=== PATIENT | male | born 1930 | race Hispanic/Latino ===

== ENCOUNTER 2016-11-17 12:14 | Inpatient (IN) | payer MEDICARE, OTHER ==
[2016-11-17 13:35] LABS: BASO # 0.1 K/uL (0.0-0.2); BASO % 0.7 % (0.0-2.0); EOS % 0.2 % (0.0-4.0); HEMATOCRIT 35.2 % (35.0-51.0); LYMPH # 1.1 K/uL (1.0-4.3); LYMPH % 7.1 % (20.0-40.0); MEAN CELL VOLUME 93.9 fl (80.0-94.0); MEAN CORPUSCULAR HEMOGLOBIN 31.8 pg (27.0-31.0); MEAN CORPUSCULAR HGB CONC 33.9 g/dL (33.0-37.0); MEAN PLATELET VOLUME 6.5 fl (7.2-11.7); MONO # 1.6 K/uL (0.0-0.8); MONO % 10.2 % (0.0-10.0); NEUT # 13.1 K/uL (1.8-7.0); NEUT % 81.8 % (50.0-75.0); PLATELET COUNT 400 K/uL (130-400); RED CELL DISTRIBUTION WIDTH 12.5 % (11.5-14.5)
[2016-11-17 13:40] LABS: BLOOD UREA NITROGEN 19 mg/dl (9-20); CALCIUM 9.1 mg/dL (8.4-10.2); CARBON DIOXIDE 25 mmol/L (22-30); CHLORIDE 90 mmol/L (98-107); GFR AFRICAN-AMERICAN > 60; GLUCOSE,RANDOM 119 mg/dL (75-110); POTASSIUM 3.1 MMOL/L (3.6-5.0); SODIUM 122 mmol/l (132-148)
[2016-11-17 13:58] LABS: PARTIAL THROMBOPLASTIN TIME 29.2 SECONDS (23.3-32.5)
[2016-11-17] MEDS ORDERED: Sodium Chloride 0.9% 500 ML IV STA (14:13)
[2016-11-17] MEDS ORDERED: Potassium Chloride 20 mEq ER Tab PO ONE ×2 (14:15→15:50)
--- NOTE | 2016-11-17 14:16 | RAD ---
HISTORY: Cough COMPARISON: 05/22/2008 FINDINGS: LUNGS: The lungs are well inflated and clear. PLEURA: No significant pleural effusion identified, no pneumothorax apparent. CARDIOVASCULAR: The heart is normal in size. Status post CABG. OSSEOUS STRUCTURES: No significant abnormalities. VISUALIZED UPPER ABDOMEN: Normal. OTHER FINDINGS: None. IMPRESSION: No active pulmonary disease.
[2016-11-17 14:38] LABS: EOSINOPHIL 1 % (0-7); NEUTROPHIL 84 % (42-75); REACTIVE LYMPHOCYTES 2 % (0-0); TOTAL CELLS COUNTED 100
--- NOTE | 2016-11-17 14:43 | ED PDOC ---
Lower Extremity Pain/Injury Time Seen by Provider: 11/17/16 12:40 Chief Complaint (Nursing): Lower Extremity Problem/Injury Chief Complaint (Provider): Lower Extremity Problem/Injury History Per: Patient History/Exam Limitations: no limitations Onset/Duration Of Symptoms: Hrs Current Symptoms Are (Timing): Still Present Severity: Moderate Additional Complaint(s): Patient is a 86 year old male who presents to ED for right hip pain s/p fall last night. Patient states he slipped out of bed injuring his hip and unable to get up, finally able to call EMS this morning. Patient denies head, neck or back pain. Patient also reports mild cough and sore throat for 1 day. Notes fell 1 month ago, [facility] Past Medical History Reviewed: Historical Data, Nursing Documentation, Vital Signs Vital Signs: Last Vital Signs Temp 97.5 F L 11/17/16 12:18 Pulse 86 11/17/16 12:18 Resp BP 170/80 H 11/17/16 12:18 Pulse Ox 99 11/17/16 12:18 - Medical History PMH: Benign Prostatic Hyperplasia Denies: Chronic Kidney Disease - Surgical History Surgical History: CABG - Family History Family History: States: Unknown Family Hx - Living Arrangements Living Arrangements: Alone - Home Medications Home Medications: Ambulatory Orders Medication Instructions Recorded Acetaminophen [Tylenol Extra 500 mg PO Q4 #30 tablet 07/17/16 Strength] - Allergies Allergies/Adverse Reactions: Allergies Allergy/AdvReac Type Severity Reaction Status Date / Time No Known Allergies Allergy Verified 07/17/16 03:45 Review of Systems ROS Statement: Except As Marked, All Systems Reviewed And Found Negative Constitutional: Negative for: Weakness Eyes: Negative for: Vision Change Cardiovascular: Negative for: Chest Pain, Palpitations Respiratory: Negative for: Shortness of Breath Gastrointestinal: Negative for: Nausea, Vomiting Musculoskeletal: Positive for: Other ((+) right hip ). Negative for: Neck Pain , Back Pain, Leg Pain Physical Exam - Reviewed Nursing Documentation Reviewed: Yes Vital Signs Reviewed: Yes - Physical Exam Appears: Positive for: Non-toxic, Uncomfortable Head Exam: Positive for: ATRAUMATIC, NORMAL INSPECTION, NORMOCEPHALIC Skin: Positive for: Normal Color, Warm, DRY Eye Exam: Positive for: EOMI, Normal appearance, PERRL Neck: Positive for: Normal, Painless ROM Cardiovascular/Chest: Positive for: Regular Rate, Rhythm, Chest Non Tender. Negative for: Murmur Respiratory: Positive for: Normal Breath Sounds. Negative for: Respiratory Distress Gastrointestinal/Abdominal: Positive for: Normal Exam, Soft. Negative for: Tenderness Back: Positive for: Normal Inspection, Other ((+) right hip tender but full ROM. ). Negative for: Vertebral Tenderness Extremity: Positive for: Normal ROM. Negative for: Pedal Edema, Calf Tenderness Neurologic/Psych: Positive for: Alert, Oriented. Negative for: Gait (unable to access at this time ) - Laboratory Results Result Diagrams: 11/18/16 05:40 11/19/16 06:00 - ECG O2 Sat by Pulse Oximetry: 99 (RA) Pulse Ox Interpretation: Normal Medical Decision Making Medical Decision Making: Time: 1300 Initial impression: Hip vs pelvic fracture Initial plan: -- CT-hip -- EKG -- BMP -- Creatine -- Troponin -- Urine idp -- CBC -- PT/PTT -- CXR -- Hip/Pelvis Xray Time: 1410 -- Potassium K -- NSF Xray pelvis L hip without acute findings Scribe Attestation: Documented by Lizzie Martinez acting as a scribe for Lux Silveira MD MD Scribe Attestation: All medical record entries made by the Scribe were at my direction and personally dictated by me. I have reviewed the chart and agree that the record accurately reflects my personal performance of the history, physical exam, medical decision making, and the department course for this patient. I have also personally directed, reviewed, and agree with the discharge instructions and disposition. Disposition - Clinical Impression Clinical Impression: Contusion of hip, Hypokalemia, Rhabdomyolysis - Patient ED Disposition Is Patient to be Admitted: Transfer of Care - Disposition Disposition: Transfer of Care Disposition Time: 15:00 Condition: FAIR Patient Signed Over To: Usha Flood Handoff Comments: pending CT hip and final disposition
--- NOTE | 2016-11-17 14:45 | RAD ---
PROCEDURE: Radiographs of the pelvis. HISTORY: hip pain COMPARISON: None. FINDINGS: BONES: Pelvic Bones: Unremarkable. Hips: Mild superior osteoarthritis bilaterally. No articular erosion. JOINTS: Sacroiliac Joints: Unremarkable. Pubic Symphysis: Unremarkable. OTHER FINDINGS: None. IMPRESSION: Mild superior osteoarthritis both hips.
--- NOTE | 2016-11-17 14:45 | RAD ---
PROCEDURE: Right Hip Radiographs. HISTORY: hip pain COMPARISON: None. FINDINGS: BONES: Normal. No fracture. JOINTS: Mild superior osteoarthritis with superior joint space narrowing and marginal osteophyte. No articular erosion. SOFT TISSUES: Normal. OTHER FINDINGS: None. IMPRESSION: Mild superior osteoarthritis.
--- NOTE | 2016-11-17 15:45 | ED PDOC ---
- Laboratory Results Result Diagrams: 11/17/16 13:18 11/17/16 13:18 - ECG O2 Sat by Pulse Oximetry: 99 (RA) Medical Decision Making Medical Decision Making: Time: 1500 Patient signed out by Dr. Silveira pending CT results and final disposition Accession No. : [id number] Patient Name / ID : ANNA HURTADO / [id number] Exam Date : 11/17/2016 15:24:01 ( Approved ) Study Comment : Sex / Age : M / 86Y Creator : Vitor Manzano MD Dictator : Vitor Manzano MD Swahili Teacher : Lead Military Analyst : Vitor Manzano MD Approver2 : Report Date : 11/17/2016 15:59:28 My Comment : PROCEDURE: CT right hip HISTORY: right hip pain COMPARISON: Not available TECHNIQUE: 2.5 mm contiguous axial sections were acquired through the right hip. Sagittal and coronal images were reformatted from the axial scans. 3D reformatted images were also created. FINDINGS: There is no evidence of fracture there is no lytic or blastic osseous lesion. There is narrowing of the superior joint space with subchondral sclerosis of the superior acetabulum, consistent with osteoarthritis. A marginal osteophyte is seen at the lateral superior acetabulum. There is a probable small bone island in the right iliac bone just above the acetabulum, measuring 6 mm in diameter. Examination of the soft tissue structures of the visualized pelvis demonstrate no evidence of hematoma about the right hip. The prostate is mildly enlarged, measuring 5.7 cm transversely. The bladder is poorly distended and the wall therefore appears mildly thickened. IMPRESSION: No evidence of right hip fracture. Mild superior osteoarthritis. Enlarged prostate. 4p DW Dr Jarad Owens Service pt needs hospitalization for rhabdomyolysis, hypokalemia, hyponatremia and ataxia Scribe Attestation: Documented by Lizzie Martinez acting as a scribe for Usha Flood MD MD Scribe Attestation: All medical record entries made by the Scribe were at my direction and personally dictated by me. I have reviewed the chart and agree that the record accurately reflects my personal performance of the history, physical exam, medical decision making, and the department course for this patient. I have also personally directed, reviewed, and agree with the discharge instructions and disposition. Disposition - Clinical Impression Clinical Impression: Contusion of hip, Hypokalemia, Rhabdomyolysis - POA Present On Arrival: Falls Or Trauma - Disposition Disposition: Admitted as In-Patient Disposition Time: 15:00 Condition: GUARDED
--- NOTE | 2016-11-17 16:01 | CT ---
PROCEDURE: CT right hip HISTORY: right hip pain COMPARISON: Not available TECHNIQUE: 2.5 mm contiguous axial sections were acquired through the right hip. Sagittal and coronal images were reformatted from the axial scans. 3D reformatted images were also created. FINDINGS: There is no evidence of fracture there is no lytic or blastic osseous lesion. There is narrowing of the superior joint space with subchondral sclerosis of the superior acetabulum, consistent with osteoarthritis. A marginal osteophyte is seen at the lateral superior acetabulum. There is a probable small bone island in the right iliac bone just above the acetabulum, measuring 6 mm in diameter. Examination of the soft tissue structures of the visualized pelvis demonstrate no evidence of hematoma about the right hip. The prostate is mildly enlarged, measuring 5.7 cm transversely. The bladder is poorly distended and the wall therefore appears mildly thickened. IMPRESSION: No evidence of right hip fracture. Mild superior osteoarthritis. Enlarged prostate.
[2016-11-17 17:37] LABS: RBC URINE 1 /hpf (0-3); URINE BILIRUBIN NEGATIVE (NEGATIVE); URINE BLOOD MODERATE (NEGATIVE); URINE COLOR YELLOW (YELLOW); URINE GLUCOSE (UA) NEG (Normal); URINE KETONE 20 mg/dL (NEGATIVE); URINE LEUKOCYTE ESTERASE NEG Leu/uL (Negative); URINE PROTEIN NEGATIVE (NEGATIVE); URINE UROBILINOGEN 0.2-1.0 mg/dL (0.2-1.0); WBC URINE 1 /hpf (0-5)
[2016-11-17] MEDS ORDERED: EnalaprilAT 1.25 mg/ml Inj IVP STA (19:55)
[2016-11-17 20:00] VITALS: BMI 19.8
[2016-11-17] MEDS ORDERED: Potassium Chloride 20 MEQ in Sodium Chloride 0.45% 1,000 ML IV SCH (20:00)
[2016-11-17] MEDS ORDERED: Sodium Chloride 0.9% 1,000 ML IV SCH (20:15)
--- NOTE | 2016-11-17 20:18 | CP.PCM.HP ---
History of Present Illness - History of Present Illness History of Present Illness: CC: Found on the floor History of pResent Illness: 86 year old male who presents to ED for right hip pain s/p fall last night. The Hip pain continuos, Mod- severe upon movement at the joint and partially relieved after pain medications. Patient states he slipped out of bed injuring his hip and unable to get up, finally able to call EMS this morning. Patient denies head, neck or back pain. Patient also reports mild cough and sore throat for 1 day. 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 Denies fever or chills. Present on Admission - Present on Admission Any Indicators Present on Admission: Yes History of DVT/PE: No History of Uncontrolled Diabetes: No Urinary Catheter: No Decubitus Ulcer Present: Yes Decubitus Ulcer Stage: II Review of Systems - Review of Systems All systems: reviewed and no additional remarkable complaints except Past Patient History - Past Medical History & Family History Past Medical History?: Yes Past Family History: Reviewed and not pertinent - Past Social History Smoking Status: Never Smoked Alcohol: None Drugs: Denies - PULMONARY Hx Respiratory Disorders: No - NEUROLOGICAL Hx Neurological Disorder: No - HEENT Hx HEENT Problems: No - RENAL Hx Chronic Kidney Disease: No - ENDOCRINE/METABOLIC Hx Endocrine Disorders: No - HEMATOLOGICAL/ONCOLOGICAL Hx Blood Disorders: No - INTEGUMENTARY Hx Dermatological Problems: No - MUSCULOSKELETAL/RHEUMATOLOGICAL Hx Falls: Yes - GASTROINTESTINAL Hx Gastrointestinal Disorders: No - PSYCHIATRIC Hx Psychophysiologic Disorder: No Hx Substance Use: No - SURGICAL HISTORY Hx Coronary Artery Bypass Graft: Yes - ANESTHESIA Hx Anesthesia: Yes Hx Anesthesia Reactions: No Meds Allergies/Adverse Reactions: Allergies Allergy/AdvReac Type Severity Reaction Status Date / Time No Known Allergies Allergy Verified 07/17/16 03:45 Physical Exam - Constitutional Appears: Well, Non-toxic - Head Exam Head Exam: ATRAUMATIC, NORMAL INSPECTION, NORMOCEPHALIC - Eye Exam Eye Exam: EOMI, Normal appearance, PERRL Pupil Exam: NORMAL ACCOMODATION, PERRL - ENT Exam ENT Exam: Mucous Membranes Moist, Normal Exam - Neck Exam Neck exam: Positive for: Full Rom, Normal Inspection - Respiratory Exam Respiratory Exam: Clear to Auscultation Bilateral, NORMAL BREATHING PATTERN - Cardiovascular Exam Cardiovascular Exam: REGULAR RHYTHM, +S1, +S2 - GI/Abdominal Exam GI & Abdominal Exam: Normal Bowel Sounds, Soft. absent: Tenderness - Exam Exam: Circumcision - Extremities Exam Extremities exam: Positive for: normal capillary refill, normal inspection - Back Exam Back exam: NORMAL INSPECTION - Neurological Exam Neurological exam: Alert, CN II-XII Intact, Normal Gait, Reflexes Normal Additional comments: Partially oriented - Psychiatric Exam Psychiatric exam: Normal Affect, Normal Mood - Skin Skin Exam: Dry, Intact, Normal Color, Warm Results - Vital Signs Recent Vital Signs: Last Vital Signs Temp 98.2 F 11/17/16 20:14 Pulse 85 11/17/16 20:14 Resp 20 11/17/16 20:14 BP 193/74 H 11/17/16 20:14 Pulse Ox 95 11/17/16 20:14 - Labs Result Diagrams: 11/20/16 06:55 11/20/16 06:55 Labs: Laboratory Results - last 24 hr 11/17/16 16:32 Urine Color Yellow Urine Clarity Clear Urine pH 6.0 Ur Specific [place] 1.012 Urine Protein Negative Urine Glucose (UA) Neg Urine Ketones 20 Urine Blood Moderate Urine Nitrate Negative Urine Bilirubin Negative Urine Urobilinogen 0.2-1.0 Ur Leukocyte Esterase Neg Urine RBC (Auto) 1 Urine Microscopic WBC 1 - EKG Data EKG Interpreted by: Myself EKG shows normal: Sinus rhythm, [place], QRS complexes, ST-T waves Rate: Normal - EKG Data EKG comments: Firs Degree AV block - Imaging and Cardiology Chest x-ray Status: Report reviewed by me Additional comment: No Acute finding. Pelvic/HIP X-RAy: Status: Report reviewed by me Additional comment: No Fracture. OA of B/L Hip CT of Right HIP: Status: Report reviewed by me Additional comment: No fracture. OA. 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
[2016-11-18 07:27] LABS: BASO # 0.1 K/uL (0.0-0.2); BASO % 0.6 % (0.0-2.0); EOS # 0.1 K/uL (0.0-0.7); EOS % 1.6 % (0.0-4.0); HEMATOCRIT 34.9 % (35.0-51.0); LYMPH # 1.2 K/uL (1.0-4.3); LYMPH % 12.5 % (20.0-40.0); MEAN CELL VOLUME 94.7 fl (80.0-94.0); MEAN CORPUSCULAR HGB CONC 33.8 g/dL (33.0-37.0); MEAN PLATELET VOLUME 7.1 fl (7.2-11.7); MONO # 1.1 K/uL (0.0-0.8); MONO % 11.4 % (0.0-10.0); NEUT # 7.1 K/uL (1.8-7.0); NEUT % 73.9 % (50.0-75.0); RED CELL DISTRIBUTION WIDTH 12.4 % (11.5-14.5); WHITE BLOOD COUNT 9.5 K/uL (4.8-10.8)
[2016-11-18 07:29] LABS: BLOOD UREA NITROGEN 12 mg/dl (9-20); CALCIUM 8.7 mg/dL (8.4-10.2); CARBON DIOXIDE 24 mmol/L (22-30); CHLORIDE 95 mmol/L (98-107); CHOLESTEROL 100 mg/dL (0-199); GFR AFRICAN-AMERICAN > 60; GLUCOSE,RANDOM 143 mg/dL (75-110); POTASSIUM 3.2 MMOL/L (3.6-5.0); SODIUM 131 mmol/l (132-148)
--- NOTE | 2016-11-18 08:03 | CARD ---
APPROVED REPORT EKG Measurement Heart [id number] <Conclusion> Sinus rhythm with sinus arrhythmia with 1st degree AV block Prolonged QT Abnormal ECG
--- NOTE | 2016-11-18 09:44 | CARD ---
APPROVED REPORT EKG Measurement Heart [id number] <Conclusion> Sinus rhythm with 1st degree AV block with premature atrial complexes Otherwise normal ECG
[2016-11-18] MEDS: Enoxaparin 40 mg Syringe SC SCH (09:49)
--- NOTE | 2016-11-18 10:02 | PQF GENQUE ---
This form is a permanent part of the medical record 11/18/16 Dr. Abraham, Would you please clarify if there is an associated diagnosis or not to go along with the Na level of 122--> 131 with IVF of NS. S/P fall last night and unable to get up. + for right hip pain. Na 122, K 3.1 , CK 2331. Clarification of your documentation is requested to better reflect the severity of illness and intensity of treatment of your patient. PHYSICIAN'S RESPONSE Based on your medical judgment of the clinical indicators outlined above please clarify the following: [x] Practitioner response: Hyponatremia with Dehydration [] If unable to determine, please check the box, sign and date. Present On Admission (POA) Indicator: [] Present at the time of admission [] Not present at the time of admission [] Clinically Undetermined In responding to this query, please exercise your independent professional judgment. The fact that a question is asked does not imply that any particular answer is desired or expected. Thank you for your clarification on this documentation. If you have any questions please call:[phone] * Thank you, Saundra Petit RN CDMP MTDD
[2016-11-18] MEDS ORDERED: Potassium Chloride 20 mEq/15 ml LIQ UD PO ONE (10:30)
[2016-11-18] MEDS ORDERED: Potassium Chloride 20 mEq ER Tab PO ONE (11:30)
[2016-11-18] MEDS: Sodium Chloride 0.9% 1,000 ML IV SCH ×2 (12:14→21:48)
--- NOTE | 2016-11-18 12:32 | CT ---
PROCEDURE: CT HEAD WITHOUT CONTRAST. HISTORY: ams COMPARISON: Noncontrast head CT performed 07/17/16 TECHNIQUE: Axial computed tomography images were obtained through the head/brain without intravenous contrast. Radiation dose: Total exam DLP = 1211.44 mGy-cm. FINDINGS: HEMORRHAGE: No intracranial hemorrhage. BRAIN: Diffuse atrophy with prominence of the ventricles and sulci noted. No mass effect or edema. Dense intracranial atherosclerotic calcifications. Scattered periventricular and subcortical white matter hypodensities, which are nonspecific, but often seen with chronic microvascular ischemic disease. Please note that MRI with diffusion imaging is more sensitive in the detection of acute ischemic event. VENTRICLES: No hydrocephalus. CALVARIUM: Unremarkable. PARANASAL SINUSES: Mucosal thickening of the left maxillary sinus. Remainder the visualized paranasal sinuses appear clear. MASTOID AIR CELLS: Unremarkable as visualized. No inflammatory changes. OTHER FINDINGS: Partial opacification of the left external auditory canal, likely cerumen. Suspect bilateral small nasal polyps. Nasal septum deviation and septal spur. IMPRESSION: Generalized atrophy. Nonspecific white matter changes. Mucosal thickening of the left maxillary sinus. Additional incidental findings as above.
--- NOTE | 2016-11-19 00:38 | CP.PCM.PN ---
Subjective - Date & Time of Evaluation Date of Evaluation: 11/18/16 Time of Evaluation: 20:55 Objective - Vital Signs/Intake and Output Vital Signs (last 24 hours): Temp Pulse Resp BP Pulse Ox 98.2 F 86 19 132/65 96 11/19/16 00:11 11/19/16 00:11 11/19/16 00:11 11/19/16 00:11 11/19/16 00:11 - Medications Medications: Current Medications Enoxaparin Sodium (Lovenox) 40 mg SC DAILY [facility] PRN Reason: Protocol Last Admin: 11/18/16 09:49 Dose: 40 mg Famotidine (Pepcid) 20 mg IVP Q12 [facility] Last Admin: 11/18/16 21:49 Dose: 20 mg Hydralazine HCl (Apresoline) 10 mg IV Q6 PRN PRN Reason: Systolic Blood Pressure Last Admin: 11/18/16 11:47 Dose: 10 mg Sodium Chloride (Sodium Chloride 0.9%) 1,000 mls @ 100 mls/hr IV .Q10H [facility] Stop: 11/19/16 11:01 Last Admin: 11/18/16 21:48 Dose: 100 mls/hr Levofloxacin/Dextrose (Levaquin 500mg) 100 mls @ 100 mls/hr IVPB DAILY [facility] Last Admin: 11/18/16 13:13 Dose: 100 mls/hr - Labs Labs: 11/18/16 05:40 11/18/16 05:40 PT 10.5 SECONDS (9.6-11.2) 11/17/16 13:18 INR 1.01 (0.92-1.08) 11/17/16 13:18 APTT 29.2 SECONDS (23.3-32.5) 11/17/16 13:18 Assessment and Plan (1) Contusion of hip Status: Acute (2) Hypokalemia Status: Acute (3) Rhabdomyolysis Status: Acute
[2016-11-19 07:26] LABS: BLOOD UREA NITROGEN 10 mg/dl (9-20); CALCIUM 8.7 mg/dL (8.4-10.2); CARBON DIOXIDE 23 mmol/L (22-30); CHLORIDE 97 mmol/L (98-107); GFR AFRICAN-AMERICAN > 60; GLUCOSE,RANDOM 163 mg/dL (75-110); POTASSIUM 3.4 MMOL/L (3.6-5.0); SODIUM 132 mmol/l (132-148)
[2016-11-19] MEDS ORDERED: Potassium Chloride 20 mEq/15 ml LIQ UD PO SCH (09:00)
[2016-11-19] MEDS: Enoxaparin 40 mg Syringe SC SCH (09:17)
[2016-11-19] MEDS: Sodium Chloride 0.9% 1,000 ML IV SCH (09:17)
--- NOTE | 2016-11-19 10:11 | CARD ---
APPROVED REPORT EXAM: Two-dimensional and M-mode echocardiogram with Doppler and color Doppler. Other Information Quality : GoodRhythm : NSR INDICATION Cardiac Disease: CAD Fall Surgery/Intervention CABD DIMENSIONS IVSd0.97 (0.7-1.1cm)LVDd3.37 (3.9-5.9cm) LVOT Diameter2.56 (1.8-2.4cm)PWd0.72 (0.7-1.1cm) IVSs1.12 (0.8-1.2cm)LVDs2.79 (2.5-4.0cm) FS (%) 16.9 %PWs1.23 (0.8-1.2cm) M-Mode DIMENSIONS Left Atrium (MM)2.94 (2.5-4.0cm)Aortic Root3.26 (2.2-3.7cm) Aortic Cusp Exc.1.62 (1.5-2.0cm) Mitral Valve MV E Uafkantu34.3cm/sMV DECEL [id number] A Oczkjcna993.7cm/s MV TZH02osY/A ratio0.6MVA (PHT)3.05cm2 TDI E/Lateral E'0.0E/Medial E'0.0 LEFT VENTRICLE The left ventricle is normal size. There is normal left ventricular wall thickness. Left ventricle systolic function is normal. The Ejection Fraction is 65-70%. There is normal LV segmental wall motion. Transmitral Doppler flow pattern is Grade I-abnormal relaxation pattern. RIGHT VENTRICLE Poorly visualised. RV function could not be assesed. ATRIA The left atrium size is normal. The right atrium size is normal. AORTIC VALVE The aortic valve is normal in structure and function. No aortic regurgitation is present. There is no aortic valvular stenosis. MITRAL VALVE Mitral annular calcification is mild. There is no mitral valve stenosis. There is no mitral valve regurgitation noted. TRICUSPID VALVE The tricuspid valve is normal in structure and function. There is no tricuspid valve regurgitation noted. PULMONIC VALVE The pulmonic valve is not well visualized. Could not be assesed. GREAT VESSELS The aortic root is normal in size. The IVC was not visualized. PERICARDIAL EFFUSION The pericardium appears normal. <Conclusion> Because of a poor echo window, the images were of a poor quality. The left ventricle is normal size. There is normal left ventricular wall thickness. There is normal LV segmental wall motion. Left ventricle systolic function is normal. The Ejection Fraction is 65-70%. Transmitral Doppler flow pattern is Grade I-abnormal relaxation pattern.
[2016-11-19] MEDS ORDERED: Potassium Chloride 20 mEq ER Tab PO ONE (12:00)
--- NOTE | 2016-11-20 00:14 | CP.PCM.PN ---
Subjective - Date & Time of Evaluation Date of Evaluation: 11/19/16 Time of Evaluation: 18:10 Objective - Vital Signs/Intake and Output Vital Signs (last 24 hours): Temp Pulse Resp BP Pulse Ox 97.8 F 85 18 195/78 H 97 11/19/16 21:00 11/19/16 21:37 11/19/16 21:00 11/19/16 21:37 11/19/16 21:00 - Medications Medications: Current Medications Acetaminophen (Tylenol 325mg Tab) 650 mg PO Q4 PRN PRN Reason: Pain, Mild (1-3) Amlodipine Besylate (Norvasc) 5 mg PO DAILY [facility] Aspirin (Ecotrin) 325 mg PO DAILY [facility] Atorvastatin Calcium (Lipitor) 20 mg PO DAILY [facility] Cholecalciferol (Vitamin D) 1,000 iu PO DAILY [facility] Enoxaparin Sodium (Lovenox) 40 mg SC DAILY [facility] PRN Reason: Protocol Last Admin: 11/19/16 09:17 Dose: 40 mg Famotidine (Pepcid) 20 mg IVP Q12 [facility] Last Admin: 11/19/16 21:43 Dose: 20 mg Finasteride (Proscar) 5 mg PO DAILY [facility] Home Med (Metoprolol Tartrate [Metoprolol Tartrate]) 25 mg PO DAILY [facility] Hydralazine HCl (Apresoline) 10 mg IV Q6 PRN PRN Reason: Systolic Blood Pressure Last Admin: 11/19/16 21:37 Dose: 10 mg Levofloxacin/Dextrose (Levaquin 500mg) 100 mls @ 100 mls/hr IVPB DAILY [facility] Last Admin: 11/19/16 09:16 Dose: 100 mls/hr Insulin Human Lispro (Humalog) 0 units SC ACHS [facility] PRN Reason: Protocol Latanoprost (Xalatan Opht) 1 drop OU DAILY [facility] Metformin HCl (Glucophage) 500 mg PO DAILY [facility] Metoprolol Tartrate (Lopressor) 25 mg PO DAILY [facility] Naproxen (Naprosyn Tab) 250 mg PO DAILY PRN PRN Reason: Inflammation Tamsulosin HCl (Flomax) 0.4 mg PO DAILY [facility] - Labs Labs: 11/18/16 05:40 11/19/16 06:00 PT 10.5 SECONDS (9.6-11.2) 11/17/16 13:18 INR 1.01 (0.92-1.08) 11/17/16 13:18 APTT 29.2 SECONDS (23.3-32.5) 11/17/16 13:18 Assessment and Plan (1) Contusion of hip Status: Acute (2) Hypokalemia Status: Acute (3) Rhabdomyolysis Status: Acute
[2016-11-20] MEDS: Aspirin 325 mg EC Tablets PO SCH (08:36)
[2016-11-20] MEDS: Enoxaparin 40 mg Syringe SC SCH (08:37)
[2016-11-20] MEDS: Insulin Lispro (humaLOG) 100 Units/ml Inj SC SCH ×4 (08:45→21:44)
[2016-11-20 08:57] LABS: HEMATOCRIT 29.5 % (35.0-51.0); MEAN CELL VOLUME 94.6 fl (80.0-94.0); MEAN CORPUSCULAR HEMOGLOBIN 32.1 pg (27.0-31.0); RED CELL DISTRIBUTION WIDTH 12.6 % (11.5-14.5); WHITE BLOOD COUNT 9.6 K/uL (4.8-10.8)
[2016-11-20] MEDS ORDERED: CHOLECALCIFEROL 1000 UNIT PO SCH (09:00)
[2016-11-20] MEDS ORDERED: Latanoprost 0.005% Opht SOUTION OU SCH (09:00)
[2016-11-20 09:04] LABS: BLOOD UREA NITROGEN 10 mg/dl (9-20); CALCIUM 8.7 mg/dL (8.4-10.2); CARBON DIOXIDE 23 mmol/L (22-30); CHLORIDE 99 mmol/L (98-107); GFR AFRICAN-AMERICAN > 60; GLUCOSE,RANDOM 157 mg/dL (75-110); POTASSIUM 3.8 MMOL/L (3.6-5.0); SODIUM 132 mmol/l (132-148)
[2016-11-20] MEDS ORDERED: Sodium Chloride 0.9% 1,000 ML IV SCH (19:45)
[2016-11-20] MEDS: Latanoprost 0.005% Opht SOUTION OU SCH (21:47)
--- NOTE | 2016-11-20 22:49 | CP.PCM.PN ---
Subjective - Date & Time of Evaluation Date of Evaluation: 11/20/16 Time of Evaluation: 17:35 Objective - Vital Signs/Intake and Output Vital Signs (last 24 hours): Temp Pulse Resp BP Pulse Ox 97.3 F L 74 16 182/69 H 97 11/20/16 21:00 11/20/16 21:43 11/20/16 21:00 11/20/16 21:43 11/20/16 21:00 - Medications Medications: Current Medications Acetaminophen (Tylenol 325mg Tab) 650 mg PO Q4 PRN PRN Reason: Pain, Mild (1-3) Amlodipine Besylate (Norvasc) 5 mg PO DAILY [facility] Last Admin: 11/20/16 08:40 Dose: 5 mg Aspirin (Ecotrin) 325 mg PO DAILY [facility] Last Admin: 11/20/16 08:36 Dose: 325 mg Atorvastatin Calcium (Lipitor) 20 mg PO DAILY [facility] Last Admin: 11/20/16 08:41 Dose: 20 mg Cholecalciferol (Vitamin D) 1,000 iu PO DAILY [facility] Last Admin: 11/20/16 08:43 Dose: 1,000 iu Enoxaparin Sodium (Lovenox) 40 mg SC DAILY [facility] PRN Reason: Protocol Last Admin: 11/20/16 08:37 Dose: 40 mg Famotidine (Pepcid) 20 mg IVP Q12 [facility] Last Admin: 11/20/16 21:36 Dose: 20 mg Finasteride (Proscar) 5 mg PO DAILY [facility] Last Admin: 11/20/16 08:39 Dose: 5 mg Home Med (Metoprolol Tartrate [Metoprolol Tartrate]) 25 mg PO DAILY [facility] Hydralazine HCl (Apresoline) 10 mg IV Q6 PRN PRN Reason: Systolic Blood Pressure Last Admin: 11/20/16 21:43 Dose: 10 mg Levofloxacin/Dextrose (Levaquin 500mg) 100 mls @ 100 mls/hr IVPB DAILY [facility] Last Admin: 11/20/16 08:42 Dose: 100 mls/hr Sodium Chloride (Sodium Chloride 0.9%) 1,000 mls @ 100 mls/hr IV .Q10H [facility] Stop: 11/21/16 19:46 Last Admin: 11/20/16 21:48 Dose: 100 mls/hr Insulin Human Lispro (Humalog) 0 units SC ACHS [facility] PRN Reason: Protocol Last Admin: 11/20/16 21:44 Dose: Not Given Latanoprost (Xalatan Opht) 1 drop OU DAILY@2200 [facility] Last Admin: 11/20/16 21:47 Dose: 1 drop Metformin HCl (Glucophage) 500 mg PO DAILY [facility] Last Admin: 11/20/16 08:38 Dose: 500 mg Metoprolol Tartrate (Lopressor) 25 mg PO DAILY [facility] Last Admin: 11/20/16 08:38 Dose: 25 mg Naproxen (Naprosyn Tab) 250 mg PO DAILY PRN PRN Reason: Inflammation Tamsulosin HCl (Flomax) 0.4 mg PO DAILY [facility] Last Admin: 11/20/16 08:41 Dose: 0.4 mg - Labs Labs: 11/20/16 06:55 11/20/16 06:55 PT 10.5 SECONDS (9.6-11.2) 11/17/16 13:18 INR 1.01 (0.92-1.08) 11/17/16 13:18 APTT 29.2 SECONDS (23.3-32.5) 11/17/16 13:18 Assessment and Plan (1) Rhabdomyolysis Status: Acute (2) Contusion of hip Status: Acute (3) Hypokalemia Status: Acute (4) 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
[2016-11-21] MEDS: Insulin Lispro (humaLOG) 100 Units/ml Inj SC SCH ×4 (06:40→21:25)
[2016-11-21] MEDS: Aspirin 325 mg EC Tablets PO SCH (09:19)
[2016-11-21] MEDS: Enoxaparin 40 mg Syringe SC SCH (09:23)
--- NOTE | 2016-11-21 12:05 | MRI ---
PROCEDURE: MRI Right Hip TECHNIQUE: Multiecho multiplanar sequences were performed through the right hip without the use of intravenous contrast. HISTORY: Pain. COMPARISON: Plain radiographs from 11/17/[address] hip joint from 11/17/2016. FINDINGS: BONES: There is normal bone marrow signal. There is no evidence of bone marrow edema, contusion, avascular necrosis or acute fracture. 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 ACETABULAR LABRUM:: Normal. No tear. ILIOPSOAS TENDON:: Normal. HAMSTRING TENDON ORIGINS:: Intact. Mild nonspecific edema. GLUTEUS TENDON INSERTION:: Normal. RECTUS FEMORIS TENDON INSERTION:: Intact. MUSCLES:: No tear or myositis. JOINT FLUID:: There is a small right joint effusion. OTHER FINDINGS: There is diffuse fatty atrophy of the gluteus jonas bilaterally. IMPRESSION: 1. No evidence of acute fracture, avascular necrosis, bone marrow edema or contusion. No evidence of tendon tear, tendinopathy or trochanter bursitis. 2. Small right joint effusion.
[2016-11-21] MEDS ORDERED: Sodium Chloride 0.9% 1,000 ML IV SCH ×2 (13:15→14:02)
--- NOTE | 2016-11-21 13:31 | PQF DECUBI ---
This form is a permanent part of the medical record 11/21/16 , Pressure ulcer is documented in the Medical Record. Please specify the location. Documentation of Pressure Ulcer : Decubitus ulcer present yes, stage II. Wound care consult completed on 11/21. Clarification of your documentation is requested to better reflect the severity of illness and intensity of treatment of your patient. Indicators present [x] Documented diagnosis of decubitus/pressure ulcer Location in the medical record that reflects the above clinical findings: [x] H& P Treatment Provided:Wound care consult PHYSICIAN'S RESPONSE Based on your medical judgment can you define the stage of the decubitus/ pressure ulcer as: Present On Admission [] Stage 1 Pressure Ulcer: Specify Location: [] Yes [] No Intact Skin with non-blanching erhythema (reddened area on skin) Painful or Itchy When compared to adjacent tissue may be firmer/softer or warmer/cooler [X] Stage 2 Pressure Ulcer: Specify Location: [X]Yes []No Partial thickness loss of dermis Abrasion, blister or shallow open crater Red/pink wound bed without slough [] Stage 3 Pressure Ulcer: Specify Location: []Yes [] No Full thickness skin loss (bone, tendon, muscle are not exposed) Damage or necrosis into subcutaneous soft tissues Slough present but does not obscure the depth of tissue loss Undermining and/or tunneling [] Stage 4 Pressure Ulcer: Specify Location: []Yes [] No Full thickness skin loss with exposed bone, tendon or muscle Slough Undermining and/or tunneling Extend into muscle and/or supporting structure (e.g. fascia, tendon, or joint capsule) [] Unstageable: Specify Location: [] []Yes [] No In responding to this query, please exercise your independent professional judgment. The fact that a question is asked does not imply that any particular answer is desired or expected. Thank you for your clarification on this documentation. If you have any questions please call:[phone] * Thank you, Saundra Petit RN [facility]
[2016-11-21] MEDS: Latanoprost 0.005% Opht SOUTION OU SCH (21:21)
--- NOTE | 2016-11-22 00:31 | CP.PCM.PN ---
Subjective - Date & Time of Evaluation Date of Evaluation: 11/21/16 Time of Evaluation: 15:50 Objective - Vital Signs/Intake and Output Vital Signs (last 24 hours): Temp Pulse Resp BP Pulse Ox 97.4 F L 85 17 186/69 H 97 11/21/16 23:39 11/21/16 23:39 11/21/16 23:39 11/21/16 23:39 11/21/16 23:39 Intake and Output: 11/21/16 11/22/16 18:59 06:59 Intake Total 2039 Balance 2039 - Medications Medications: Current Medications Acetaminophen (Tylenol 325mg Tab) 650 mg PO Q4 PRN PRN Reason: Pain, Mild (1-3) Amlodipine Besylate (Norvasc) 10 mg PO DAILY [facility] Aspirin (Ecotrin) 325 mg PO DAILY [facility] Last Admin: 11/21/16 09:19 Dose: 325 mg Atorvastatin Calcium (Lipitor) 20 mg PO DAILY [facility] Last Admin: 11/21/16 09:22 Dose: 20 mg Cholecalciferol (Vitamin D) 1,000 iu PO DAILY [facility] Last Admin: 11/21/16 09:25 Dose: 1,000 iu Famotidine (Pepcid) 20 mg IVP Q12 [facility] Last Admin: 11/21/16 21:22 Dose: 20 mg Finasteride (Proscar) 5 mg PO DAILY [facility] Last Admin: 11/21/16 09:25 Dose: 5 mg Hydralazine HCl (Apresoline) 10 mg IV Q6 PRN PRN Reason: Systolic Blood Pressure Last Admin: 11/20/16 21:43 Dose: 10 mg Levofloxacin/Dextrose (Levaquin 500mg) 100 mls @ 100 mls/hr IVPB DAILY [facility] Last Admin: 11/21/16 12:00 Dose: 100 mls/hr Sodium Chloride (Sodium Chloride 0.9%) 1,000 mls @ 70 mls/hr IV .[id number] [facility] Last Admin: 11/21/16 21:21 Dose: 70 mls/hr Insulin Human Lispro (Humalog) 0 units SC ACHS [facility] PRN Reason: Protocol Last Admin: 11/21/16 21:25 Dose: Not Given Latanoprost (Xalatan Opht) 1 drop OU DAILY@2200 [facility] Last Admin: 11/21/16 21:21 Dose: 1 drop Metformin HCl (Glucophage) 500 mg PO DAILY [facility] Last Admin: 11/21/16 09:20 Dose: 500 mg Metoprolol Tartrate (Lopressor) 25 mg PO DAILY [facility] Last Admin: 11/21/16 09:22 Dose: 25 mg Naproxen (Naprosyn Tab) 250 mg PO DAILY PRN PRN Reason: Inflammation Tamsulosin HCl (Flomax) 0.4 mg PO DAILY [facility] Last Admin: 11/21/16 09:20 Dose: 0.4 mg - Labs Labs: 11/20/16 06:55 11/20/16 06:55 PT 10.5 SECONDS (9.6-11.2) 11/17/16 13:18 INR 1.01 (0.92-1.08) 11/17/16 13:18 APTT 29.2 SECONDS (23.3-32.5) 11/17/16 13:18 Assessment and Plan (1) Rhabdomyolysis Status: Acute (2) Contusion of hip Status: Acute (3) Hypokalemia Status: Acute (4) 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
[2016-11-22] MEDS: Insulin Lispro (humaLOG) 100 Units/ml Inj SC SCH ×4 (06:48→22:33)
[2016-11-22] MEDS: Aspirin 325 mg EC Tablets PO SCH (08:46)
--- NOTE | 2016-11-22 12:13 | CP.PCM.PN ---
Subjective - Date & Time of Evaluation Date of Evaluation: 11/22/16 Time of Evaluation: 12:15 Objective - Vital Signs/Intake and Output Vital Signs (last 24 hours): Temp Pulse Resp BP Pulse Ox 98.2 F 98 H 18 153/63 H 96 11/22/16 07:58 11/22/16 09:00 11/22/16 07:58 11/22/16 08:47 11/22/16 07:58 - Medications Medications: Current Medications Acetaminophen (Tylenol 325mg Tab) 650 mg PO Q4 PRN PRN Reason: Pain, Mild (1-3) Last Admin: 11/22/16 09:20 Dose: 650 mg Amlodipine Besylate (Norvasc) 10 mg PO DAILY [facility] Last Admin: 11/22/16 08:47 Dose: 10 mg Aspirin (Ecotrin) 325 mg PO DAILY [facility] Last Admin: 11/22/16 08:46 Dose: 325 mg Atorvastatin Calcium (Lipitor) 20 mg PO DAILY [facility] Last Admin: 11/22/16 08:47 Dose: 20 mg Cholecalciferol (Vitamin D) 1,000 iu PO DAILY [facility] Last Admin: 11/22/16 08:47 Dose: 1,000 iu Enoxaparin Sodium (Lovenox) 40 mg SC DAILY [facility] PRN Reason: Protocol Famotidine (Pepcid) 20 mg IVP Q12 [facility] Last Admin: 11/22/16 08:52 Dose: 20 mg Finasteride (Proscar) 5 mg PO DAILY [facility] Last Admin: 11/22/16 08:48 Dose: 5 mg Hydralazine HCl (Apresoline) 10 mg IV Q6 PRN PRN Reason: Systolic Blood Pressure Last Admin: 11/22/16 00:57 Dose: 10 mg Levofloxacin/Dextrose (Levaquin 500mg) 100 mls @ 100 mls/hr IVPB DAILY [facility] Last Admin: 11/21/16 12:00 Dose: 100 mls/hr Sodium Chloride (Sodium Chloride 0.9%) 1,000 mls @ 70 mls/hr IV .[id number] [facility] Last Admin: 11/21/16 21:21 Dose: 70 mls/hr Insulin Human Lispro (Humalog) 0 units SC ACHS [facility] PRN Reason: Protocol Last Admin: 11/22/16 06:48 Dose: 1 unit Latanoprost (Xalatan Opht) 1 drop OU DAILY@2200 [facility] Last Admin: 11/21/16 21:21 Dose: 1 drop Metformin HCl (Glucophage) 500 mg PO DAILY [facility] Last Admin: 11/22/16 08:46 Dose: 500 mg Metoprolol Tartrate (Lopressor) 25 mg PO DAILY [facility] Last Admin: 11/22/16 08:47 Dose: 25 mg Naproxen (Naprosyn Tab) 250 mg PO DAILY PRN PRN Reason: Inflammation Last Admin: 11/22/16 09:21 Dose: 250 mg Tamsulosin HCl (Flomax) 0.4 mg PO DAILY [facility] Last Admin: 11/22/16 08:46 Dose: 0.4 mg - Labs Labs: 11/20/16 06:55 11/20/16 06:55 PT 10.5 SECONDS (9.6-11.2) 11/17/16 13:18 INR 1.01 (0.92-1.08) 11/17/16 13:18 APTT 29.2 SECONDS (23.3-32.5) 11/17/16 13:18 Assessment and Plan (1) Rhabdomyolysis Status: Acute (2) Contusion of hip Status: Acute (3) Hypokalemia Status: Acute (4) 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
[2016-11-22] MEDS: Enoxaparin 40 mg Syringe SC SCH (13:45)
[2016-11-22 16:23] VITALS: RESP 20
[2016-11-22] MEDS: Latanoprost 0.005% Opht SOUTION OU SCH (21:34)
[2016-11-23] MEDS: Insulin Lispro (humaLOG) 100 Units/ml Inj SC SCH (06:45)
[2016-11-23 07:50] VITALS: BP 179/67; PULSE 82; TEMP 97.6; O2SAT 98
[2016-11-23] MEDS: Aspirin 325 mg EC Tablets PO SCH (09:35)
[2016-11-23] MEDS: Enoxaparin 40 mg Syringe SC SCH (09:39)
[2016-11-23 13:24] LABS: BASO % 0.6 % (0.0-2.0); EOS # 0.2 K/uL (0.0-0.7); HEMATOCRIT 29.7 % (35.0-51.0); LYMPH # 1.5 K/uL (1.0-4.3); LYMPH % 18.3 % (20.0-40.0); MEAN CELL VOLUME 92.3 fl (80.0-94.0); MEAN CORPUSCULAR HEMOGLOBIN 32.6 pg (27.0-31.0); MEAN CORPUSCULAR HGB CONC 35.3 g/dL (33.0-37.0); MEAN PLATELET VOLUME 6.5 fl (7.2-11.7); MONO # 1.1 K/uL (0.0-0.8); MONO % 13.7 % (0.0-10.0); NEUT # 5.3 K/uL (1.8-7.0); NEUT % 65.4 % (50.0-75.0); NRBC % 0.1 % (0.0-0.0); RED CELL DISTRIBUTION WIDTH 12.2 % (11.5-14.5); WHITE BLOOD COUNT 8.1 K/uL (4.8-10.8)
[2016-11-23 13:39] LABS: ALKALINE PHOSPHATASE 74 U/L (38-126); ALT/SGPT 35 U/L (21-72); AST/SGOT 38 U/L (17-59); BILIRUBIN,TOTAL 0.7 mg/dl (0.2-1.3); BLOOD UREA NITROGEN 11 mg/dl (9-20); CALCIUM 8.8 mg/dL (8.4-10.2); CARBON DIOXIDE 26 mmol/L (22-30); CHLORIDE 90 mmol/L (98-107); GFR AFRICAN-AMERICAN > 60; GLUCOSE,RANDOM 162 mg/dL (75-110); POTASSIUM 3.7 MMOL/L (3.6-5.0); SODIUM 127 mmol/l (132-148); TOTAL PROTEIN 5.9 G/DL (6.3-8.2)
--- NOTE | 2016-11-23 23:52 | CP.PCM.DIS ---
Provider - Provider Date of Admission: 11/17/16 15:35 Attending physician: Wang Abraham MD Time Spent in preparation of Discharge (in minutes): 25 Diagnosis - Discharge Diagnosis (1) Rhabdomyolysis Status: Acute (2) Contusion of hip Status: Acute (3) Hypokalemia Status: Acute (4) 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 Hospital Course - Lab Results Lab Results: Micro Results 11/17/16 20:30 Blood-Venous Blood Culture - Final NO GROWTH AFTER 5 DAYS 11/17/16 20:30 Blood-Venous Gram Stain - Final TEST NOT PERFORMED 11/17/16 21:00 Blood-Venous Blood Culture - Final NO GROWTH AFTER 5 DAYS 11/17/16 21:00 Blood-Venous Gram Stain - Final TEST NOT PERFORMED 11/18/16 21:47 Urine,Clean Catch Urine Culture - Final No Growth (<1,000 CFU/ML) Most Recent Lab Values WBC 8.1 K/uL (4.8-10.8) 11/23/16 12:50 RBC 3.21 Mil/uL (4.40-5.90) L 11/23/16 12:50 Hgb 10.5 g/dL (12.0-18.0) L 11/23/16 12:50 Hct 29.7 % (35.0-51.0) L 11/23/16 12:50 MCV 92.3 fl (80.0-94.0) D 11/23/16 12:50 MCH 32.6 pg (27.0-31.0) H 11/23/16 12:50 MCHC 35.3 g/dL (33.0-37.0) 11/23/16 12:50 RDW 12.2 % (11.5-14.5) 11/23/16 12:50 Plt Count 413 K/uL (130-400) H 11/23/16 12:50 MPV 6.5 fl (7.2-11.7) L 11/23/16 12:50 Neut % (Auto) 65.4 % (50.0-75.0) 11/23/16 12:50 Lymph % (Auto) 18.3 % (20.0-40.0) L 11/23/16 12:50 [place] % (Auto) 13.7 % (0.0-10.0) H 11/23/16 12:50 Eos % (Auto) 2.0 % (0.0-4.0) 11/23/16 12:50 Baso % (Auto) 0.6 % (0.0-2.0) 11/23/16 12:50 Neut # 5.3 K/uL (1.8-7.0) 11/23/16 12:50 Lymph # 1.5 K/uL (1.0-4.3) 11/23/16 12:50 [place] # 1.1 K/uL (0.0-0.8) H 11/23/16 12:50 Eos # 0.2 K/uL (0.0-0.7) 11/23/16 12:50 Baso # 0.0 K/uL (0.0-0.2) 11/23/16 12:50 Neutrophils % (Manual) 84 % (42-75) H 11/17/16 13:18 Band Neutrophils % 1 % (0-2) 11/17/16 13:18 Lymphocytes % (Manual) 5 % (20-50) L 11/17/16 13:18 Reactive Lymphs % 2 % (0-0) H 11/17/16 13:18 Monocytes % (Manual) 7 % (0-10) 11/17/16 13:18 Eosinophils % (Manual) 1 % (0-7) 11/17/16 13:18 Platelet Estimate Normal (NORMAL) 11/17/16 13:18 Hypochromasia (manual) Slight 11/17/16 13:18 PT 10.5 SECONDS (9.6-11.2) 11/17/16 13:18 INR 1.01 (0.92-1.08) 11/17/16 13:18 APTT 29.2 SECONDS (23.3-32.5) 11/17/16 13:18 Sodium 127 mmol/l (132-148) L 11/23/16 12:50 Potassium 3.7 MMOL/L (3.6-5.0) 11/23/16 12:50 Chloride 90 mmol/L (98-107) L 11/23/16 12:50 Carbon Dioxide 26 mmol/L (22-30) 11/23/16 12:50 Anion Gap 15 (10-20) 11/23/16 12:50 BUN 11 mg/dl (9-20) 11/23/16 12:50 Creatinine 0.7 mg/dL (0.8-1.5) L 11/23/16 12:50 Est GFR ( Amer) > 60 11/23/16 12:50 Est GFR (Non-Af Amer) > 60 11/23/16 12:50 POC Glucose (mg/dL) 281 mg/dL (65-110) H 11/23/16 10:49 Random Glucose 162 mg/dL (75-110) H 11/23/16 12:50 Serum Osmolality 269 mosm/kg (272-300) L 11/17/16 21:00 Calcium 8.8 mg/dL (8.4-10.2) 11/23/16 12:50 Total Bilirubin 0.7 mg/dl (0.2-1.3) 11/23/16 12:50 AST 38 U/L (17-59) 11/23/16 12:50 ALT 35 U/L (21-72) 11/23/16 12:50 Alkaline Phosphatase 74 U/L (38-126) 11/23/16 12:50 Total Creatine Kinase 132 U/L (55-170) 11/23/16 12:50 Troponin I 0.0230 ng/mL (0.00-0.120) 11/18/16 12:11 Total Protein 5.9 G/DL (6.3-8.2) L 11/23/16 12:50 Albumin 3.0 g/dL (3.5-5.0) L 11/23/16 12:50 Globulin 2.9 gm/dL (2.2-3.9) 11/23/16 12:50 Albumin/Globulin Ratio 1.0 (1.0-2.1) 11/23/16 12:50 Triglycerides 82 mg/DL (0-149) 11/18/16 05:40 Cholesterol 100 mg/dL (0-199) 11/18/16 05:40 LDL Cholesterol Direct 36 mg/dL (0-129) 11/18/16 05:40 HDL Cholesterol 42 MG/DL (30-70) 11/18/16 05:40 TSH 3rd Generation 2.40 mIU/ML (0.46-4.68) 11/18/16 05:40 Urine Color Yellow (YELLOW) 11/17/16 16:32 Urine Clarity Clear (Clear) 11/17/16 16:32 Urine pH 6.0 (5.0-8.0) 11/17/16 16:32 Ur Specific [place] 1.012 (1.003-1.030) 11/17/16 16:32 Urine Protein Negative mg/dL (NEGATIVE) 11/17/16 16:32 Urine Glucose (UA) Neg mg/dL (Normal) 11/17/16 16:32 Urine Ketones 20 mg/dL (NEGATIVE) 11/17/16 16:32 Urine Blood Moderate (NEGATIVE) 11/17/16 16:32 Urine Nitrate Negative (NEGATIVE) 11/17/16 16:32 Urine Bilirubin Negative (NEGATIVE) 11/17/16 16:32 Urine Urobilinogen 0.2-1.0 mg/dL (0.2-1.0) 11/17/16 16:32 Ur Leukocyte Esterase Neg [place]/uL (Negative) 11/17/16 16:32 Urine RBC (Auto) 1 /hpf (0-3) 11/17/16 16:32 Urine Microscopic WBC 1 /hpf (0-5) 11/17/16 16:32 Urine Osmolality 328 mosm/kg (300-1000) 11/18/16 09:03 Discharge Exam - Head Exam Head Exam: ATRAUMATIC, NORMAL INSPECTION, NORMOCEPHALIC - Eye Exam Eye Exam: EOMI, Normal appearance, PERRL Pupil Exam: NORMAL ACCOMODATION, PERRL - GI/Abdominal Exam GI & Abdominal Exam: Normal Bowel Sounds - Rectal Exam Rectal Exam: NORMAL INSPECTION - Exam Exam: Circumcision, NORMAL INSPECTION External exam: NORMAL EXTERNAL EXAM Speculum exam: NORMAL SPECULUM EXAM Bimanual exam: NORMAL BIMANUAL EXAM - Neurological Exam Neurological exam: Alert, CN II-XII Intact, Normal Gait, Oriented x3, Reflexes Normal - Psychiatric Exam Psychiatric exam: Normal Affect, Normal Mood - Skin Skin Exam: Dry, Intact, Normal Color, Warm Discharge Plan - Follow Up Plan Condition: FAIR Disposition: REHAB FACILITY/REHAB UNIT Instructions: Rhabdomyolysis (DC), Hypokalemia (DC), Hypokalemia (GEN) Additional Instructions: patient cleared for discharge to [facility] by Dr.Seman cont. PT/OT f/u at the [facility] cont. current meds (see reconciliation)
== END 2016-11-23 14:54 | DRG 558 ==
LOC: H.ER 12:14 → H.ERHOLD 15:35 → H.TEL 18:10 → H.MEDSURG1 11-22 20:45
PROVIDERS: ADMIT Internal Medicine; ATTEND Internal Medicine
DX: M62.82 Rhabdomyolysis (principal); E87.1 Hypo-osmolality and hyponatremia; E86.0 Dehydration; L89.92 Pressure ulcer of unspecified site, stage 2; W06.XXXA Fall from bed, initial encounter; Z95.1 Presence of aortocoronary bypass graft; E87.6 Hypokalemia; I25.10 Atherosclerotic heart disease of native coronary artery without angina pectoris; S70.01XA Contusion of right hip, initial encounter; Y93.9 Activity, unspecified; Y92.003 Bedroom of unspecified non-institutional (private) residence as the place of occurrence of the external cause; N40.0 Benign prostatic hyperplasia without lower urinary tract symptoms; M16.0 Bilateral primary osteoarthritis of hip